=== PATIENT | male | born 1955 | race Caucasian/White ===

== ENCOUNTER 2018-05-26 08:29 | Day surgery (SDC) | payer BC ==
[2018-05-22 09:32] VITALS: BMI 32.5
[~2018-05-26 08:29] MED LIST: LACTATED RINGERS 1,000 ML IV SCH
[2018-05-26 09:01] VITALS: TEMP 98
[2018-05-26] MEDS ORDERED: LIDOCAINE 1% 20 ML VIAL (10MG/ML) FOR IV START INTRADERMA ONE (09:12)
[2018-05-26] MEDS ORDERED: PROPOFOL 10 MG/ML 20 ML VIAL IV ONE (09:54)
--- NOTE | 2018-05-26 10:21 | P.PCN ---
Date of Procedure: 05/26/18 Procedure(s) Performed: Procedure: Total colonoscopy. Preoperative diagnosis: Screening for neoplasia, patient has history of polyps and family history of colon cancer. Postoperative diagnosis: Exam within normal limits. Preparation: HalfLytely prep. Sedation: Was provided by anesthesia. Brief clinical history: The patient is a 63-year-old male who is scheduled for this evaluation for screening for neoplasia because of history of polyps and family history of colon cancer in his maternal grandfather. The patient has no abdominal complaints, bleeding or anemia. His last exam was in 2012. Procedure: With the patient on his left lateral decubitus position and after informed consent and adequate sedation, the perianal area was inspected and it did not show any fissures or fistulas. There were no masses felt on digital rectal examination. The Olympus CFQ 160 video colonoscope was then inserted in the rectum in the usual fashion and advanced to the cecum. The mucosa appeared healthy. No polyps or tumors were seen or any obvious diverticular disease or other pathology. I retroflexed the endoscope in the rectum before the endoscope was withdrawn. The patient tolerated the procedure well. Plan: The patient was reassured. He will follow up with you as planned and I recommended repeat exam in 5 years.
[2018-05-26 10:25] VITALS: RESP 16
[2018-05-26 10:31] VITALS: BP 126/68; PULSE 70
== END 2018-05-26 11:06 | disposition home or self-care (01) ==
LOC: ORWHC2ENDO 08:29
DX: Z12.11 Encounter for screening for malignant neoplasm of colon (principal); I10 Essential (primary) hypertension; E78.5 Hyperlipidemia, unspecified; M19.90 Unspecified osteoarthritis, unspecified site; G47.33 Obstructive sleep apnea (adult) (pediatric); Z86.010 Personal history of colon polyps; Z80.0 Family history of malignant neoplasm of digestive organs; Z88.0 Allergy status to penicillin; Z79.82 Long term (current) use of aspirin; Z79.899 Other long term (current) drug therapy
CPT/HCPCS: 45378; J2704

== ENCOUNTER → 2018-11-24 | Outpatient (CLI) | payer BC ==
--- NOTE | 2018-11-24 11:17 | US ---
EXAMINATION TYPE: US duplex aorta DATE OF EXAM: 11/24/2018 COMPARISON: NONE CLINICAL HISTORY: Z13.6 SCREENING FOR CARDIOVASCULAR DISEASE. Family history of AAA EXAM MEASUREMENTS: Abdominal Aorta: Proximal: 2.7 x 2.6 x 3.0 cm Mid: 2.2 x 2.5 x 2.3 cm Distal: 2.1 x 2.2 x 2.1 cm Bifurcation: RT: 1.3 x 1.3 x 1.4 cm LT: 1.3 x 1.2 x 1.3 cm Proximal and mid aorta measuring upper limits of normal. Atherosclerotic changes noted. IMPRESSION: Evidence of aortic ectasia but no diagnostic evidence of aneurysm (3 cm or greater)
== END | disposition home or self-care (01) ==
LOC: RADUSWWP 10:49
PROVIDERS: ATTEND Internal Medicine
DX: Z13.6 Encounter for screening for cardiovascular disorders (principal)
CPT/HCPCS: 93979

== ENCOUNTER → 2020-05-18 | Outpatient (CLI) | payer MEDICARE ==
--- NOTE | 2020-05-18 11:18 | US ---
EXAMINATION TYPE: US venous doppler duplex LE RT DATE OF EXAM: 05/18/2020 11:05 AM COMPARISON: NONE CLINICAL HISTORY: Z47.1,Z96.641,M79.669,M79.89. Right hip replacement, swelling SIDE PERFORMED: Right TECHNIQUE: The lower extremity deep venous system is examined utilizing real time linear array sonog zen with graded compression, doppler sonography and color-flow sonography. VESSELS IMAGED: External Iliac Vein (EIV) Common Femoral Vein Deep Femoral Vein Greater Saphenous Vein * Femoral Vein Popliteal Vein Small Saphenous Vein * Proximal Calf Veins (* superficial vessels) Right Leg: Negative for DVT IMPRESSION: No evidence for DVT at this time.
== END | disposition home or self-care (01) ==
LOC: RADUSWWP 10:46
PROVIDERS: ATTEND Orthopaedic Surgery
DX: Z47.1 Aftercare following joint replacement surgery (principal); I80.201 Phlebitis and thrombophlebitis of unspecified deep vessels of right lower extremity; M79.661 Pain in right lower leg; M79.89 Other specified soft tissue disorders; Z96.641 Presence of right artificial hip joint

== ENCOUNTER → 2023-04-09 | Outpatient (CLI) | payer MEDICARE ==
--- NOTE | 2023-04-09 12:44 | US ---
EXAMINATION TYPE: US abdomen complete DATE OF EXAM: 04/09/2023 COMPARISON: NONE CLINICAL INDICATION: Male, 67 years old with history of ABD PAIN R109; right flank pain for months TECHNIQUE: Multiple sonographic images of the abdomen are obtained. FINDINGS: EXAM MEASUREMENTS: Liver Length: 14.0 cm Gallbladder Wall: 0.3 cm CBD: 0.7 cm Spleen: 10.2 cm Right Kidney: 11.7 x 5.0 x 5.7 cm Left Kidney: 10.3 x 4.8 x 6.5 cm Pancreas: wnl Liver: wnl Gallbladder: possible anterior wall polyp 0.3 x 0.2cm there is no abnormal gallbladder distention, w all thickening, surrounding fluid, or shadowing calculi. Evidence for sonographic Arroyo's sign: no CBD: wnl Spleen: wnl Right Kidney: 1.1 x 1.2 x 1.0cm simple appearing cyst Left Kidney: 3.3 x 2.8 x 2.3cm simple appearing cyst No hydronephrosis on either side. Upper IVC: wnl Abd Aorta: wnl IMPRESSION: 1. A tiny 3 mm anterior gallbladder wall polyp. Consider precautionary 6-12 month follow-up gallbladd er ultrasound to reassess. 2. No gallstones or biliary ductal dilatation. 3. A benign simple cyst within either kidney measuring up to 3.3 cm. No hydronephrosis on either side .
== END | disposition home or self-care (01) ==
LOC: RADUSWWP 06:53
PROVIDERS: ATTEND Family Medicine
DX: K82.4 Cholesterolosis of gallbladder (principal); N28.1 Cyst of kidney, acquired
CPT/HCPCS: 76700

== ENCOUNTER 2023-06-17 09:00 | Day surgery (SDC) | payer MEDICARE ==
[2023-06-12 08:56] VITALS: BMI 32.5
[~2023-06-17 09:00] MED LIST changes: +LIDOCAINE 1% (10MG/ML) FOR IV START INTRADERMA PRN
[2023-06-17 10:19] VITALS: RESP 16; TEMP 91
[2023-06-17] MEDS ORDERED: LIDOCAINE 2% (PF) 20 MG/ML 5 ML VIAL ONE (10:34)
[2023-06-17] MEDS ORDERED: PROPOFOL 10 MG/ML 20 ML VIAL IV ONE (10:34)
--- NOTE | 2023-06-17 10:53 | P.PCN ---
Date of Procedure: 06/17/23 Procedure(s) Performed: BRIEF HISTORY: Patient is a 68-year-old pleasant white male scheduled for an elective colonoscopy as a part of screening for colon cancer. PROCEDURE PERFORMED: Colonoscopy. PREOPERATIVE DIAGNOSIS: Screening for colon cancer. IV sedation per Anesthesia. PROCEDURE: After informed consent was obtained, the patient, was brought into the endoscopy unit. IV sedation was administered by Anesthesia under continuous monitoring. Digital rectal examination was normal. Initially the Olympus CF-160 flexible video colonoscope was then inserted in the rectum, gradually advanced into the cecum without any difficulty. Careful examination was performed as the scope was gradually being withdrawn. Ileocecal valve and the appendiceal orifice were visualized and appeared normal. Prep was excellent. Mucosa of the cecum, ascending colon, transverse colon, descending colon, sigmoid colon, and rectum appeared normal. Scattered sigmoid diverticulosis. Retroflexion was performed in the rectum and grade 2 internal hemorrhoids were seen. The patient tolerated the procedure well. IMPRESSION: Scattered sigmoid diverticulosis Grade 2 internal hemorrhoids No evidence of colorectal neoplasia RECOMMENDATIONS: Findings of this examination were discussed with the patient as well as his family. He was advised to have a repeat screening colonoscopy in 10 years..
[2023-06-17 11:17] VITALS: BP 147/71; PULSE 80
== END 2023-06-17 11:37 | disposition home or self-care (01) ==
LOC: ORWHC2ENDO 09:00
PROVIDERS: ATTEND Internal Medicine Gastroenterology
DX: Z12.11 Encounter for screening for malignant neoplasm of colon (principal); K57.30 Diverticulosis of large intestine without perforation or abscess without bleeding; K64.1 Second degree hemorrhoids; I10 Essential (primary) hypertension; E78.5 Hyperlipidemia, unspecified; Z88.0 Allergy status to penicillin; Z79.899 Other long term (current) drug therapy
CPT/HCPCS: J2704; J2001; G0121

== ENCOUNTER → 2024-07-01 | Outpatient (CLI) | payer MEDICARE ==
--- NOTE | 2024-07-01 10:58 | US ---
EXAMINATION TYPE: US gallbladder DATE OF EXAM: 07/01/2024 COMPARISON: US 2022 CLINICAL INDICATION: Male, 69 years old with history of K82.4 Cholesterolosis of gallbladder; TECHNIQUE: Grayscale and color Doppler imaging of the right upper quadrant was performed. FINDINGS: EXAM MEASUREMENTS: Liver Length: 14.4 cm Gallbladder Wall: 0.2 cm CBD: 0.6 cm Right Kidney: 10.4 x 5.6 x 5.1 cm Pancreas: obscured by overlying midline bowel gas Liver: wnl Gallbladder: appears wnl, polyp seen on previous ultrasound not seen on today's exam Evidence for sonographic Arroyo's sign: no CBD: borderline dilated Right Kidney: appears wnl, cyst seen on previous ultrasound not seen on today's exam Pancreas is obscured by overlying bowel gas. Liver appears within normal limits without focal lesion. Previously seen gallbladder polyp is not visualized on today's exam. No shadowing gallbladder calcul i. No wall thickening or surrounding fluid. Negative sonographic Arroyo sign. Top end of normal commo n bile duct caliber. Right kidney demonstrates no hydronephrosis or shadowing calculi. Previously see n cyst is not visualized today's exam. IMPRESSION: 1. No ultrasound evidence for an acute process. 2. Previously seen gallbladder polyp is not visualized on today's exam. No cholelithiasis. 3. Previously seen right renal cyst is not visualized on today's exam. [facility], , 07/01/2024 10:56 AM
== END | disposition home or self-care (01) ==
LOC: RADUSWWP 10:15
PROVIDERS: ATTEND Family Medicine
DX: K82.4 Cholesterolosis of gallbladder (principal)
CPT/HCPCS: 76705

== ENCOUNTER 2024-09-20 05:49 | Observation (INO) | payer MEDICARE ==
[~2024-09-20 05:49] MED LIST changes: +ALPRAZolam 0.25 MG TAB PO PRN; +ALPRAZolam 0.5 MG TAB PO PRN; +HEPARIN SODIUM,PORCINE (1 ML) 2,500 UNIT in SODIUM CHLORIDE 0.9% 250 ML IRRIGATION PRN; +HEPARIN SODIUM,PORCINE 10,000 UNIT in SODIUM CHLORIDE 0.9% 1,000 ML IRRIGATION PRN; -LACTATED RINGERS 1,000 ML IV SCH; -LIDOCAINE 1% (10MG/ML) FOR IV START INTRADERMA PRN; +NITROGLYCERIN SL TABS 0.4 MG TAB SUBLINGUAL PRN
[2024-09-20] MEDS: SODIUM CHLORIDE 0.9% 1,000 ML in EMPTY BAG 1 BAG IV SCH (06:19)
[2024-09-20 06:37] LABS: Basophils % (A) 1 %; Eosinophils # (A) 0.1 k/uL (0-0.7); Eosinophils % (A) 2 %; HCT 41.3 % (39.0-53.0); HGB 13.9 gm/dL (13.0-17.5); Lymphocytes # (A) 1.3 k/uL (1.0-4.8); Lymphocytes % (A) 30 %; MCH 30.9 pg (25.0-35.0); MCHC 33.7 g/dL (31.0-37.0); MCV 91.7 fL (80.0-100.0); Mean Platelet Volume 6.4; Monocytes # (A) 0.3 k/uL (0-1.0); Monocytes % (A) 7 %; Neutrophils # (A) 2.5 k/uL (1.3-7.7); Neutrophils % (A) 58 %; Platelet Count 173 k/uL (150-450); RBC 4.51 m/uL (4.30-5.90); RDW 12.9 % (11.5-15.5); WBC 4.3 k/uL (3.8-10.6)
[2024-09-20] MEDS: IV FLUID CONTINUATION 1,000 ML IV ONE (06:39)
[2024-09-20 06:53] LABS: African American GFR (CKD) 82 (>60 ml/min/1.73 sqM); Anion Gap 7 mmol/L; Blood Urea Nitrogen 21 mg/dL (9-20); Calcium 9.3 mg/dL (8.4-10.2); Carbon Dioxide 25 mmol/L (22-30); Chloride 105 mmol/L (98-107); Glucose 96 mg/dL (74-99); Non-African American GFR(CKD) 71 (>60 ml/min/1.73 sqM); Sodium 137 mmol/L (137-145)
[2024-09-20] MEDS: MIDAZOLAM 2 MG/2 ML VIAL IVP ONE ×3 (07:42→08:00)
[2024-09-20] MEDS: VERAPAMIL SYRINGE (5 MG/10 ML) INTRAARTER ONE (07:44)
[2024-09-20] MEDS: LIDOCAINE 1% INJ 10MG/ML (20 ML MDV) SQ ONE (07:44)
[2024-09-20] MEDS: HEPARIN SODIUM,PORCINE 10,000 UNIT in SODIUM CHLORIDE 0.9% 1,000 ML IRRIGATION ONE (07:48)
[2024-09-20] MEDS: HEPARIN SODIUM 1,000 UN/ML (10ML VL) IVP ONE ×2 (07:48→07:59)
[2024-09-20] MEDS: HEPARIN SODIUM,PORCINE (1 ML) 2,500 UNIT in SODIUM CHLORIDE 0.9% 250 ML IRRIGATION ONE (07:49)
[2024-09-20] MEDS: fentaNYL (PF) 50 MCG/ML 2 ML AMP IVP ONE ×2 (07:53→08:00)
[2024-09-20] MEDS: IOPAMIDOL-370 100ML BTL INJ ONE (08:21)
[2024-09-20] MEDS ORDERED: RX INFO: IV CONTRAST WAS GIVEN 1 EACH MISC MISCELLANE PRN (08:25)
--- NOTE | 2024-09-20 08:29 | P.PCN ---
Date of Procedure: 09/20/24 Operative Findings: CARDIAC CATHETERIZATION PERFORMING PHYSICIAN: Jermain Lilly MD, RPVI PROCEDURE PERFORMED: 1. Selective right and left coronary angiogram and left heart catheterization 2. IFR of the RCA and LCx and LAD 3. Ultrasound-guided access of the right radial artery INDICATION: Symptomatic 69-year-old gentleman with abnormal myocardial perfusion imaging stress test and multiple risk factors was COMPLICATION: None APPROACH: Right radial artery LEVEL OF SEDATION: Moderate with a sedation length of 38 minutes PROCEDURE DESCRIPTION: After obtaining an informed consent, the patient was brought to cardiac dye lab technician. Local anesthesia was performed using lidocaine subcutaneously. The right radial artery was cannulated using Seldinger technique, the guidewire passed easily, following that we advanced a 5-Argentine sheath dilator assembly, the wire and dilator were removed and sheath was flushed. Following that, 2 mg of verapamil along with 5000 unit heparin were given. Selective right and left coronary angiogram using a 6-Argentine JR4 and JL 3.5 catheters. After that I decided to do an IFR of the RCA and LCx and LAD. After zeroing Dobler wire and equalizing between the Dobler wire and guiding catheter which was JR4 guiding catheter the left main was engaged and subsequently the LAD was wired. Then we did an IFR of the LAD and that came in to be at 0.77. Subsequently the wire was directed toward the left circumflex and I did IFR of the left circumflex which came to be at 0.76 and then I did equalized between the Dobler wire and guiding catheter which was JR4 guiding catheter I did IFR of the RCA and that came in to be at 0.92 Following that we did left heart catheterization the JR4 catheter The procedure was completed there was no complication. SELECTIVE CORONARY ANGIOGRAM: The right coronary artery: Calcified vessel with intermediate to severe disease involving the mid and distal portion documented to be nonflow limiting by Doppler wire Left main: Calcified with mild disease only The left circumflex: Large-caliber vessel and a dominant vessel with intermediate to severe lesion distally documented to be flow-limiting by Doppler wire The left anterior descending artery: Calcified vessel with intermediate to severe disease in the midportion document ed to be flow-limiting by Doppler wire as described above HEMODYNAMICS: The LVEDP was about 12 mmHg with no significant gradient across aortic valve CONCLUSION: 1. Severe disease involving the distal left circumflex and mid LAD 2. Intermediate disease involving the mid RCA and distal RCA POSTPROCEDURE MANAGEMENT: PCI to be performed from the groin using 7 Argentine system on different session
[2024-09-20] MEDS: SODIUM CHLORIDE 0.9% 1,000 ML IV SCH (16:05)
[2024-09-20] MEDS: ASCORBIC ACID 500 MG TAB PO SCH (16:06)
[2024-09-20] MEDS: CHOLECALCIFEROL 25 MCG (1000 IU) TABLET PO SCH (16:08)
[2024-09-20 17:25] VITALS: RESP 16
[2024-09-20] MEDS: ASPIRIN 325 MG TAB PO STA (20:39)
[2024-09-20] MEDS: ATORVASTATIN 80 MG TAB PO STA (20:40)
[2024-09-20] MEDS: ATORVASTATIN 40 MG TAB PO SCH (20:56)
[2024-09-20] MEDS: amLODIPine 10 MG TAB PO SCH (20:56)
[2024-09-20] MEDS: ASPIRIN 81 MG PO SCH (20:56)
[2024-09-20] MEDS ORDERED: TURMERIC PO SCH (21:00)
[2024-09-20] MEDS ORDERED: NON FORMULARY DRUG (Ubidecarenone [Co Q-10] 100 MG Capsule) PO SCH (21:00)
[2024-09-21] MEDS: SODIUM CHLORIDE 0.9% 1,000 ML in EMPTY BAG 1 BAG IV ONE ×2 (04:50→12:13)
[2024-09-21] MEDS: ASPIRIN 325 MG TAB PO STA (06:29)
[2024-09-21 06:35] LABS: Glucose,Whole Blood 89 mg/dL (70-110)
[2024-09-21 06:37] LABS: Basophils % (A) 0 %; Eosinophils # (A) 0.1 k/uL (0-0.7); Eosinophils % (A) 2 %; HCT 40.5 % (39.0-53.0); HGB 13.4 gm/dL (13.0-17.5); Lymphocytes # (A) 1.3 k/uL (1.0-4.8); Lymphocytes % (A) 30 %; MCH 30.7 pg (25.0-35.0); MCHC 33.1 g/dL (31.0-37.0); MCV 92.7 fL (80.0-100.0); Monocytes # (A) 0.4 k/uL (0-1.0); Monocytes % (A) 9 %; Neutrophils # (A) 2.5 k/uL (1.3-7.7); Neutrophils % (A) 57 %; Platelet Count 171 k/uL (150-450); RBC 4.37 m/uL (4.30-5.90); RDW 12.9 % (11.5-15.5); WBC 4.4 k/uL (3.8-10.6)
[2024-09-21 06:42] LABS: African American GFR (CKD) >90 (>60 ml/min/1.73 sqM); Anion Gap 8 mmol/L; Blood Urea Nitrogen 14 mg/dL (9-20); Carbon Dioxide 25 mmol/L (22-30); Chloride 105 mmol/L (98-107); Glucose 79 mg/dL (74-99); Non-African American GFR(CKD) 80 (>60 ml/min/1.73 sqM); Potassium 3.9 mmol/L (3.5-5.1); Sodium 138 mmol/L (137-145)
[2024-09-21] MEDS ORDERED: HEPARIN SODIUM,PORCINE 10,000 UNIT in SODIUM CHLORIDE 0.9% 1,000 ML IRRIGATION PRN (07:00)
[2024-09-21] MEDS ORDERED: HEPARIN SODIUM,PORCINE (1 ML) 2,500 UNIT in SODIUM CHLORIDE 0.9% 250 ML IRRIGATION PRN (07:00)
[2024-09-21] MEDS: IV FLUID CONTINUATION 1,000 ML IV ONE (09:43)
[2024-09-21] MEDS: LIDOCAINE 1% INJ 10MG/ML (20 ML MDV) SQ ONE ×2 (09:49→09:50)
[2024-09-21] MEDS: MIDAZOLAM 2 MG/2 ML VIAL IVP ONE ×2 (09:50→10:33)
[2024-09-21] MEDS: TICAGRELOR 90 MG TAB PO ONE (09:50)
[2024-09-21] MEDS: HEPARIN SODIUM,PORCINE 10,000 UNIT in SODIUM CHLORIDE 0.9% 1,000 ML IRRIGATION ONE (09:53)
[2024-09-21] MEDS: HEPARIN SODIUM,PORCINE (1 ML) 2,500 UNIT in SODIUM CHLORIDE 0.9% 250 ML IRRIGATION ONE (09:54)
[2024-09-21] MEDS: fentaNYL (PF) 50 MCG/ML 2 ML AMP IVP ONE ×3 (09:54→10:33)
[2024-09-21] MEDS: HEPARIN SODIUM 1,000 UN/ML (10ML VL) IVP ONE ×3 (10:00→10:56)
[2024-09-21] MEDS: IOPAMIDOL-370 100ML BTL INJ ONE ×2 (10:41→11:18)
[2024-09-21] MEDS ORDERED: ATROPINE SULFATE 0.1 MG/ML 10ML SYRINGE IV PRN (11:32)
[2024-09-21] MEDS ORDERED: MAG HYDROX/AL HYDROX/SIMETH 30 ML CUP PO PRN (11:32)
[2024-09-21] MEDS ORDERED: ZOLPIDEM 5 MG TAB PO PRN (11:32)
[2024-09-21] MEDS ORDERED: RX INFO: IV CONTRAST WAS GIVEN 1 EACH MISC MISCELLANE PRN (11:32)
[2024-09-21 14:40] VITALS: BMI 33.8
--- NOTE | 2024-09-21 20:35 | P.PCN ---
Date of Procedure: 09/21/24 Operative Findings: Percutaneous coronary intervention Performing physician Jermain Chaves MD Procedure performed Successful stenting of the mid LAD using a 3.0 x 33 mm Xience MARY with an excellent angiographic results Successful stenting of the distal LAD using 2.75 x 15 mm Xience MARY with an excellent angiographic results Successful stenting of the distal left circumflex using 3.0 x 38 mm Xience MARY with an excellent angiographic results Adjunctive use of IVUS and lithotripsy balloon Selective right common femoral artery angiogram and ultrasound-guided access of the right common femoral artery Indication 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 Approach Right common femoral artery Complication None Level of sedation Moderate with sedation length of 72 minutes Procedure description After obtaining an informed consent the patient was brought to the cardiac Resident Services Manager. The right common femoral artery was cannulated using compression technique under ultrasound diagnostic and the micropuncture wire passed easily then I placed a 7 Argentine 11 cm sheath at the right common femoral artery subsequently the sheath was secured and flushed. Anticoagulation was initiated using heparin with continuous ACT monitoring. Attempting engaging the left main using an EBU 3.75 guiding catheter 7 Argentine was unsuccessful. The left main was engaged using JL 4 and a 7 Argentine guiding catheter. Subsequently I wired the LAD using a Runthrough wire. After that I did intravascular ultrasound of the LAD which showed a diameter of 3 mm. Predilatation was performed using 2.0 x 15 mm NC balloon. Subsequently predilatation was performed using 3.0 x 15 mm score flex balloon. Because I had difficulties advancing the IVUS catheter and the lesion was very calcified I was able to advance lithotripsy balloon and that was 3 oh by 12 mm with adjunctive use of guideline. I did balloon angioplasty using the lithotripsy balloon. I was able to advance a 3.0 x 33 mm Xience MARY with adjunctive use of guide liner. The stent was positioned under fluoroscopy guidance and deployed under fluoroscopy guidance. The angiogram after that was performed and showed that what it seems to be possible distal edge dissection which I decided to cover and at that point I advanced 2.75 x 15 mm Xience MARY with stent again was advanced distal to the stent in the mid LAD with adjunctive use of guide liner. The second stent was deployed under 12 anjali for 20 seconds. The area of overlap between the first and second stent was postdilated using the stent balloon. Then the stent in the mid LAD itself which was the first stent was postdilated using 3.25 x 15 mm NC balloon with final angiogram showing excellent angiographic results and the procedure was completed with no complication on the LAD. Subsequently I left the LAD wire in place and I wired the left circumflex using a whisper wire. After that I did IVUS of the left circumflex but the IVUS could not advance across the lesion only to the very proximal/ostial left circumflex coronary artery. After that I did the predilatation of the lesion in the distal left circumflex/PDA of the left circumflex using 2.5 x 12 mm NC balloon. And then 93 oh by 10 mm score flex probe. Attempting advancing a 3.0 x 38 mm Xience was unsuccessful but was successful using the guide liner. The stent was positioned under fluoroscopy guidance and deployed under fluoroscopy guidance and postdilated using 3.25 mm NC balloon. Final angiogram showed excellent angiographic results and the procedure was completed with no complication Postprocedure management Dual antiplatelet therapy using aspirin and Brilinta for at least 6 months Aggressive cholesterol control Risk factors modification Follow-up with the patient
[2024-09-21] MEDS: TICAGRELOR 90 MG TAB PO SCH (20:38)
[2024-09-22 02:36] VITALS: TEMP 98.2
[2024-09-22 05:42] LABS: Basophils % (A) 0 %; Eosinophils # (A) 0.1 k/uL (0-0.7); Eosinophils % (A) 2 %; HCT 39.5 % (39.0-53.0); HGB 13.5 gm/dL (13.0-17.5); Lymphocytes # (A) 1.3 k/uL (1.0-4.8); Lymphocytes % (A) 21 %; MCH 31.1 pg (25.0-35.0); MCHC 34.1 g/dL (31.0-37.0); MCV 91.4 fL (80.0-100.0); Mean Platelet Volume 6.8; Monocytes # (A) 0.5 k/uL (0-1.0); Monocytes % (A) 8 %; Neutrophils # (A) 4.1 k/uL (1.3-7.7); Neutrophils % (A) 67 %; Platelet Count 174 k/uL (150-450); RBC 4.32 m/uL (4.30-5.90); RDW 12.9 % (11.5-15.5); WBC 6.2 k/uL (3.8-10.6)
[2024-09-22 06:22] LABS: African American GFR (CKD) 82 (>60 ml/min/1.73 sqM); Anion Gap 5 mmol/L; Blood Urea Nitrogen 15 mg/dL (9-20); Calcium 9.1 mg/dL (8.4-10.2); Carbon Dioxide 25 mmol/L (22-30); Chloride 106 mmol/L (98-107); Glucose 106 mg/dL (74-99); Non-African American GFR(CKD) 71 (>60 ml/min/1.73 sqM); Sodium 136 mmol/L (137-145)
[2024-09-22 08:16] VITALS: BP 124/77; PULSE 79
--- NOTE | 2024-09-22 09:55 | P.DS ---
Providers Date of admission: 09/21/24 12:30 Attending physician: Jermain Lilly Consults: 09/21/24 11:32 Consult Physician Routine Consulting Provider: [facility] Reason/Comments: Post Interventional Patient Do you want consulting provider notified?: Already Contacted Primary care physician: Meet [facility] [place] [facility] Course: This is a very pleasant 69-year-old gentleman who was seen in the office recently and was symptomatic where he underwent myocardial perfusion imaging stress ischemic to be abnormal and subsequently underwent a heart catheterization which revealed severe two-vessel CAD involving the LCx and LAD and intermediate disease involving the RCA. The patient underwent successful PCI of the LCx and LAD with a good angiographic results and no complication. He was seen and evaluated this morning. The right groin is soft and nontender with no bruises. The patient is going to be discharged on dual antiplatelet therapy using aspirin and Brilinta along with a statin and beta-lisa. I will follow-up with the patient next week in the office Plan - Discharge Summary Discharge Rx Participant: Yes New Discharge Prescriptions: New Ticagrelor [Brilinta] 90 mg PO BID #180 tab Metoprolol Tartrate [Lopressor] 12.5 mg PO BID #180 tab Continue Ubidecarenone [Co Q-10] 100 mg PO HS Aspirin 81 mg PO HS amLODIPine [Norvasc] 10 mg PO HS Ascorbic Acid [Vitamin C] 500 mg PO DAILY Turmeric(Unknown Dose) 1 tab PO HS Atorvastatin [Lipitor] 40 mg PO HS Cholecalciferol (Vitamin D3) [Vitamin D3 (1250 Mcg = 50,000 Iu)] 1,250 mcg PO DAILY Discharge Medication List Ubidecarenone [Co Q-10] 100 mg PO HS 12/19/15 [History] Aspirin 81 mg PO HS 05/22/18 [History] Ascorbic Acid [Vitamin C] 500 mg PO DAILY 06/12/23 [History] Atorvastatin [Lipitor] 40 mg PO HS 06/12/23 [History] Cholecalciferol (Vitamin D3) [Vitamin D3 (1250 Mcg = 50,000 Iu)] 1,250 mcg PO DAILY 06/12/23 [History] amLODIPine [Norvasc] 10 mg PO HS 06/12/23 [History] Turmeric(Unknown Dose) 1 tab PO HS 09/15/24 [History] Metoprolol Tartrate [Lopressor] 12.5 mg PO BID #180 tab 09/22/24 [Rx] Ticagrelor [Brilinta] 90 mg PO BID #180 tab 09/22/24 [Rx] Follow up Appointment(s)/Referral(s): Jermain Lilly MD [STAFF PHYSICIAN] - 09/28/24 9:30 am (FOLLOW UP APPOINTMENT MADE. ) Patient Instructions/Handouts: *Surgery [facility] - After Heart Catheterization - Sports Book Writer Instructions, Moderate Sedation (DC), After Radial Heart Ca theterization (GEN) Activity/Diet/Wound Care/Special Instructions: NO DRIVING FOR TWO DAYS. OK TO SHOWER TOMORROW AFTER 24HOURS, REMOVE DRESSING FIRST. NO NEED TO REAPPLY DRESSING. MONITOR FOR SIGNS OF INFECTION IE: FEVER, RASH, UNUSUAL DRAINAGE, SWELLING OR HARD KNOT OVER PUNCTURE SITE. CONTACT DR TO BE EVALUATED OR GO TO ER. AVOID PUSHING PULLING LIFTING MORE THAN 5 LBS FOR FIVE DAYS TO AVOID BLEEDING RISK. IF PUNCTURE BLEEDS, APPLY FIRM PRESSURE AND GO TO ER. DO NOT DRIVE SELF. MEDICATIONS PER DR LILLY
== END 2024-09-22 11:40 | disposition home or self-care (01) ==
LOC: CATHCVL 05:49 → 6NMEDSUR 08:20 → CATHCVL 09-21 12:30
PROVIDERS: ADMIT Internal Medicine Interventional Cardiology; ATTEND Internal Medicine Interventional Cardiology
DX: I25.10 Atherosclerotic heart disease of native coronary artery without angina pectoris (principal); I10 Essential (primary) hypertension; E78.5 Hyperlipidemia, unspecified; I35.1 Nonrheumatic aortic (valve) insufficiency; I42.9 Cardiomyopathy, unspecified; I77.810 Thoracic aortic ectasia; E66.3 Overweight; Z68.33 Body mass index [BMI] 33.0-33.9, adult; R94.39 Abnormal result of other cardiovascular function study; Z79.82 Long term (current) use of aspirin; Z79.899 Other long term (current) drug therapy
CPT/HCPCS: 93005; 92978; 93458; 92972; 80048 ×3; 85025 ×3; G0378 ×2; C9600; C1760; C1769 ×8; C1887 ×4; C1894 ×2; C1753; C1874 ×3; C1725 ×6; C1761; J2250 ×2; J1644 ×6; J2003 ×2; J3010 ×2; Q9967 ×2

== ENCOUNTER 2025-01-03 06:20 | Day surgery (SDC) | payer MEDICARE ==
[2025-01-03] MEDS: SODIUM CHLORIDE 0.9% 1,000 ML in EMPTY BAG 1 BAG IV SCH ×2 (06:40→15:44)
[2025-01-03] MEDS: IV FLUID CONTINUATION 1,000 ML IV ONE (06:40)
[2025-01-03] MEDS ORDERED: ALPRAZolam 0.25 MG TAB PO PRN (06:42)
[2025-01-03] MEDS ORDERED: NITROGLYCERIN SL TABS 0.4 MG TAB SUBLINGUAL PRN ×2 (06:42→08:46)
[2025-01-03] MEDS ORDERED: ALPRAZolam 0.5 MG TAB PO PRN (06:42)
[2025-01-03 07:06] LABS: Basophils # (A) 0.03 10*3/uL (0.00-0.10); Basophils % (A) 0.6 %; Eosinophils # (A) 0.15 10*3/uL (0.04-0.35); HCT 37.9 % (39.6-50.0); HGB 13.8 g/dL (13.0-17.0); Lymphocytes # (A) 1.19 10*3/uL (0.90-5.00); Lymphocytes % (A) 24.1 %; MCH 32.3 pg (27.0-32.0); MCHC 36.4 g/dL (32.0-37.0); MCV 88.8 fL (80.0-97.0); Mean Platelet Volume 9.1 fL (9.5-12.2); Monocytes # (A) 0.54 10*3/uL (0.20-1.00); Monocytes % (A) 10.9 %; Neutrophils # (A) 3.02 10*3/uL (1.80-7.70); Neutrophils % (A) 61.2 %; Platelet Count 163 10*3/uL (140-440); RBC 4.27 10*6/uL (4.40-5.60); RDW 12.8 % (11.5-14.5); WBC 4.94 10*3/uL (4.50-10.00)
[2025-01-03 07:17] LABS: African American GFR (CKD) >90 (>60 ml/min/1.73 sqM); Anion Gap 9 mmol/L; Blood Urea Nitrogen 18 mg/dL (9-20); Calcium 9.3 mg/dL (8.4-10.2); Carbon Dioxide 22 mmol/L (22-30); Chloride 109 mmol/L (98-107); Glucose 111 mg/dL (74-99); Non-African American GFR(CKD) 82 (>60 ml/min/1.73 sqM); Sodium 140 mmol/L (137-145)
[2025-01-03] MEDS: ASPIRIN 325 MG TAB PO STA (07:19)
[2025-01-03] MEDS: HEPARIN SODIUM,PORCINE (1 ML) 2,500 UNIT in SODIUM CHLORIDE 0.9% 250 ML IRRIGATION PRN (07:21)
[2025-01-03] MEDS: HEPARIN SODIUM,PORCINE 10,000 UNIT in SODIUM CHLORIDE 0.9% 1,000 ML IRRIGATION PRN (07:21)
[2025-01-03] MEDS: IV FLUID CONTINUATION 200 ML IV ONE (07:25)
[2025-01-03 07:27] LABS: Potassium 4.3 mmol/L (3.5-5.1)
[2025-01-03] MEDS: MIDAZOLAM 2 MG/2 ML VIAL IVP ONE ×2 (07:44→08:05)
[2025-01-03] MEDS: fentaNYL (PF) 50 MCG/ML 2 ML AMP IVP ONE (07:48)
[2025-01-03] MEDS: LIDOCAINE 1% INJ 10MG/ML (20 ML MDV) SQ ONE (07:58)
[2025-01-03] MEDS: VERAPAMIL SYRINGE (5 MG/10 ML) INTRAARTER ONE (08:00)
[2025-01-03] MEDS: NITROGLYCERIN 1000MCG/10ML SYRINGE INTRACORON ONE (08:38)
[2025-01-03] MEDS: niCARdipine Syringe (1,000 mcg/10 mL) INTRACORON ONE (08:40)
[2025-01-03] MEDS: IOPAMIDOL-370 100ML BTL INJ ONE (08:41)
[2025-01-03] MEDS: SODIUM CHLORIDE 0.9% 500 ML 500 ML IV ONE (08:42)
[2025-01-03] MEDS ORDERED: ZOLPIDEM 5 MG TAB PO PRN (08:46)
[2025-01-03] MEDS ORDERED: ATROPINE SULFATE 0.1 MG/ML 10ML SYRINGE IV PRN (08:46)
[2025-01-03] MEDS ORDERED: MAG HYDROX/AL HYDROX/SIMETH 30 ML CUP PO PRN (08:46)
[2025-01-03] MEDS ORDERED: RX INFO: IV CONTRAST WAS GIVEN 1 EACH MISC MISCELLANE PRN (08:46)
--- NOTE | 2025-01-03 08:50 | P.PCN ---
Date of Procedure: 01/03/25 Operative Findings: CARDIAC CATHETERIZATION AND PERCUTANEOUS CORONARY INTERVENTION PERFORMING PHYSICIAN: Jermain Lilly MD, [facility] PROCEDURE PERFORMED: 1. Selective right and left coronary angiogram and left heart catheterization 2. Successful stenting of mid using 3.0 x 23 mm Xience MARY with an excellent angiographic results 3. Adjunctive use of IVUS 4. Ultrasound-guided access of the right radial artery INDICATION: Chest discomfort concerning for unstable COMPLICATION: None APPROACH: Right radial artery LEVEL OF SEDATION: Moderate with the sedation time off 44 minutes PROCEDURE DESCRIPTION: After obtaining informed consent the patient was brought to the cardiac County Adviser with right radial artery was cannulated using micropuncture technique under ultrasound guidance a micropuncture wire passed easily then I placed a 6 [place] 11 cm sheath at the right radial artery and anticoagulation was initiated using heparin with continuous ACT monitoring subsequently the patient was given 2 mg of verapamil intra-arterial. Selective right and left coronary angiogram performed using JR4 and JL 3.5 catheters. After that left heart catheterization was performed using the JR4 catheter which crossed the aortic valve then I did pullback across the valve. After that I decided to intervene on the LAD with after that I did engage the left main using JL 3.5 guiding catheter and wired the LAD using a run-through wire. IVUS was performed that showed a diameter around 3 mm. The artery was very calcified. Predilatation was performed using 2.5 x 12 mm NC balloon before I deployed 3.0 x 23 mm stent which was postdilated using 3.5 mm NC balloon with final angiogram showing good angiographic results documented angiographically and also IVUS was performed and showed that the stent appear to be well opposed and well-expanded. The patient was chest pain- free. The procedure was completed with no complication SELECTIVE CORONARY ANGIOGRAM: The right coronary artery: Large-caliber vessel and a dominant vessel with intermediate tubular lesion involving the proximal to midportion appears to be the same as before Left main: Calcified with mild disease The left circumflex: Large caliber vessel codominant vessel with patent stent in the mid and distal left circumflex coronary The left anterior descending artery: Large caliber vessel with patent stent in the mid LAD and critical disease involving the proximal edge of the stent HEMODYNAMICS: The LVEDP was 8 mmHg with no significant gradient across aortic valve CONCLUSION: 1. Patent stent in the left circumflex coronary system 2. Patent stent in the mid LAD with critical disease involving the proximal to mid LAD just on proximal edge of the stent. I did perform successful PCI of the LAD 3. Intermediate disease involving the RCA appears to be the same as before 4. Normal left-sided filling pressure POSTPROCEDURE MANAGEMENT: 1. Dual antiplatelet therapy using aspirin and. For at least 6 month 2. Aggressive cholesterol control 3. Follow-up with the patient
[2025-01-03] MEDS: ATORVASTATIN 80 MG TAB PO STA (15:44)
[2025-01-03] MEDS: ATORVASTATIN 40 MG TAB PO SCH (20:47)
[2025-01-03] MEDS: ASPIRIN 81 MG PO SCH (20:47)
[2025-01-03] MEDS: METOPROLOL TARTRATE 25 MG TAB PO SCH (20:47)
[2025-01-03] MEDS: TICAGRELOR 90 MG TAB PO SCH (20:47)
[2025-01-03] MEDS ORDERED: NON FORMULARY DRUG (Ubidecarenone [Co Q-10] 100 MG Capsule) PO SCH (21:00)
[2025-01-03] MEDS ORDERED: TURMERIC PO SCH (21:00)
[2025-01-04 05:17] LABS: African American GFR (CKD) >90 (>60 ml/min/1.73 sqM); Non-African American GFR(CKD) 88 (>60 ml/min/1.73 sqM)
[2025-01-04 07:47] VITALS: RESP 16
[2025-01-04] MEDS: CHOLECALCIFEROL 25 MCG (1000 IU) TABLET PO SCH (08:32)
[2025-01-04] MEDS: ASCORBIC ACID 500 MG TAB PO SCH (08:32)
[2025-01-04 11:26] VITALS: BMI 33.3
[2025-01-04 14:22] VITALS: BP 127/81; PULSE 67; TEMP 98.1
== END 2025-01-04 16:47 | disposition home or self-care (01) ==
LOC: CATHCVL 06:20 → 6NMEDSUR 13:25 → CATHCVL 01-04 16:47
PROVIDERS: ATTEND Internal Medicine Interventional Cardiology
DX: I25.10 Atherosclerotic heart disease of native coronary artery without angina pectoris (principal); E78.2 Mixed hyperlipidemia; I77.819 Aortic ectasia, unspecified site; F17.200 Nicotine dependence, unspecified, uncomplicated; Z82.49 Family history of ischemic heart disease and other diseases of the circulatory system; Z79.82 Long term (current) use of aspirin; Z79.899 Other long term (current) drug therapy
CPT/HCPCS: 99152; 99153; 93005; 92978; 93458; 80048; 82565; 85025; C9600; C1769 ×2; C1894; C1887 ×2; C1753; C1874 ×2; C1725 ×2; J2250; J1644 ×3; J2003; J3010; Q9967; J2305